=== PATIENT | female | born 1970 | race Two or more races ===

== ENCOUNTER 2022-04-06 13:44 | Inpatient (IN) | payer MEDICAID ==
[~2022-04-06] VITALS: Ht 157.5 cm; Wt 60.5 kg
[2022-04-06 15:53] LABS: Basophils # (auto) 0.1 10 ^3/uL (0-0.2); Basophils % (auto) 1.1 % (0.0-2.0); Eosinophils # (auto) 0.1 10 ^3/uL (0-0.8); Eosinophils % (auto) 1.3 % (0.0-7.0); Hematocrit 38.9 % (36.0-46.0); Hemoglobin 13.3 g/dL (12.2-16.2); Lymphocytes # (auto) 1.4 10 ^3/uL (0.4-5.4); Mean Corpuscular Hemoglobin 28.5 pg (28.0-32.0); Mean Corpuscular Hgb Conc. 34.3 g/dL (32.0-36.0); Monocytes # (auto) 0.4 10 ^3/uL (0-1.3); Neutrophils # (auto) 3.6 10 ^3/uL (1.6-8.6); Neutrophils % (auto) 64.6 % (37.0-80.0); Nucleated Red Blood Cells % 0.1 %; Red Blood Cells 4.68 10^6/uL (4.0-5.20); Red Cell Distribution Width 15.1 % (11.8-14.3); White Blood Cell 5.6 10^3/uL (4.4-10.8)
[2022-04-06 16:11] LABS: Albumin 4.1 g/dL (3.4-5.0); Calcium 8.8 mg/dL (8.5-10.1); Potassium 3.5 mmol/L (3.5-5.1)
[2022-04-06 16:14] LABS: Bilirubin, Total 0.5 mg/dL (0.2-1.0); Total Protein 7.8 g/dL (6.4-8.2)
[2022-04-06 16:30] LABS: Partial Thromboplastin Time 24.9 sec (23.6-33.0)
[2022-04-06] MEDS ORDERED: SUMAtriptan SUCCINATE 25 MG TAB PO PRN (21:15)
[2022-04-06] MEDS ORDERED: MORPHINE SULFATE INJ 2 MG/ml SYRG IV PRN (21:15)
[2022-04-06] MEDS ORDERED: ACETAMINOPHEN 325 MG TAB PO PRN (21:15)
[2022-04-06] MEDS ORDERED: TEMAZEPAM 15 MG CAP PO PRN (21:15)
[2022-04-06] MEDS ORDERED: DEXTROSE (50%) 50ML SYRG IV PRN (21:15)
[2022-04-06] MEDS ORDERED: NITROGLYCERIN 0.4 MG SL TAB SL PRN (21:15)
[2022-04-06] MEDS ORDERED: ONDANSETRON HCL 4 MG/2 ML VIAL IV PRN (21:15)
[2022-04-06] MEDS: ACCU-CHEK COMFORT CURVE STRIP VI SCH (22:02)
[2022-04-06] MEDS: InsuLIN REG 1unit/0.01ml Soln (100units/ml) SC SCH (22:02)
[2022-04-06] MEDS: HYDROcodone-ACET 5/325MG TAB PO PRN (22:07)
[2022-04-06 23:15] VITALS: BP 139/77
[2022-04-06] MEDS ORDERED: METF-370 PO (23:56)
[2022-04-07 05:00] VITALS: BP 140/78
[2022-04-07] MEDS ORDERED: FER325T PO (06:13)
[2022-04-07] MEDS ORDERED: SERT50TA19 PO (06:13)
[2022-04-07] MEDS ORDERED: ERTU5TAB PO (06:13)
[2022-04-07] MEDS ORDERED: LISI-275 PO (06:13)
[2022-04-07] MEDS ORDERED: OMEP20TA PO (06:13)
[2022-04-07] MEDS: InsuLIN REG 1unit/0.01ml Soln (100units/ml) SC SCH ×4 (06:17→21:31)
[2022-04-07] MEDS: ACCU-CHEK COMFORT CURVE STRIP VI SCH ×4 (06:17→21:29)
[2022-04-07 07:03] LABS: Basophils # (auto) 0 10 ^3/uL (0-0.2); Basophils % (auto) 0.5 % (0.0-2.0); Eosinophils # (auto) 0.1 10 ^3/uL (0-0.8); Eosinophils % (auto) 1.5 % (0.0-7.0); Hematocrit 38.8 % (36.0-46.0); Hemoglobin 12.9 g/dL (12.2-16.2); Lymphocytes # (auto) 1.3 10 ^3/uL (0.4-5.4); Lymphocytes % (auto) 32.4 % (10.0-50.0); Mean Corpuscular Hemoglobin 27.7 pg (28.0-32.0); Mean Corpuscular Hgb Conc. 33.3 g/dL (32.0-36.0); Mean Corpuscular Volume 83.3 fL (80.0-100.0); Monocytes # (auto) 0.4 10 ^3/uL (0-1.3); Monocytes % (auto) 10.1 % (0.0-12.0); Neutrophils # (auto) 2.3 10 ^3/uL (1.6-8.6); Neutrophils % (auto) 55.5 % (37.0-80.0); Nucleated Red Blood Cells % 0.3 %; Red Blood Cells 4.66 10^6/uL (4.0-5.20); Red Cell Distribution Width 14.6 % (11.8-14.3)
[2022-04-07 07:29] LABS: BUN/Creatinine Ratio 29.6; Calcium 8.9 mg/dL (8.5-10.1); Potassium 4.1 mmol/L (3.5-5.1)
[2022-04-07 07:59] LABS: White Blood Cell 4.1 10^3/uL (4.4-10.8)
[2022-04-07] MEDS: HYDROcodone-ACET 5/325MG TAB PO PRN (08:33)
[2022-04-07 09:00] VITALS: BP 134/78
[2022-04-07] MEDS: ENOXAPARIN SOD 40 MG/0.4 ML SYRINGE SC SCH (09:35)
[2022-04-07] MEDS: LISINOPRIL 5 MG TAB PO SCH (09:35)
[2022-04-07 13:18] VITALS: BP 114/71
[2022-04-07 17:00] VITALS: BP 116/67
[2022-04-07 22:00] VITALS: BP 122/74
[2022-04-08 05:00] VITALS: BP 118/75
[2022-04-08] MEDS: ACCU-CHEK COMFORT CURVE STRIP VI SCH ×4 (06:12→20:59)
[2022-04-08] MEDS: InsuLIN REG 1unit/0.01ml Soln (100units/ml) SC SCH ×4 (06:12→21:05)
[2022-04-08 09:00] VITALS: BP 112/70
[2022-04-08] MEDS: ENOXAPARIN SOD 40 MG/0.4 ML SYRINGE SC SCH (09:26)
[2022-04-08] MEDS: HYDROcodone-ACET 5/325MG TAB PO PRN (09:27)
[2022-04-08] MEDS: LISINOPRIL 5 MG TAB PO SCH (09:27)
[2022-04-08 13:00] VITALS: BP 107/58
[2022-04-08 17:00] VITALS: BP 107/62
[2022-04-08 22:00] VITALS: BP 113/60
[2022-04-09 05:00] VITALS: BP 118/78
[2022-04-09] MEDS: ACCU-CHEK COMFORT CURVE STRIP VI SCH ×3 (06:29→17:11)
[2022-04-09] MEDS: InsuLIN REG 1unit/0.01ml Soln (100units/ml) SC SCH ×3 (06:30→17:16)
[2022-04-09 09:00] VITALS: BP 111/69
[2022-04-09] MEDS: ENOXAPARIN SOD 40 MG/0.4 ML SYRINGE SC SCH (09:38)
[2022-04-09] MEDS: LISINOPRIL 5 MG TAB PO SCH (09:39)
[2022-04-09] MEDS ORDERED: SERT50TA19 PO (12:27)
[2022-04-09 13:00] VITALS: BP 114/72
[2022-04-09 17:00] VITALS: BP 107/68
[2022-04-09 17:49] VITALS: BP 107/68
== END 2022-04-09 19:00 | disposition home health service (06) | DRG 54 ==
LOC: ER 13:44 → OVERFLOW 21:09 → CENTRAL 23:00
PROVIDERS: ADMIT Nurse Practitioner; ATTEND Internal Medicine
DX: R51.9 Headache, unspecified (principal); E11.9 Type 2 diabetes mellitus without complications; Z20.822 Contact with and (suspected) exposure to COVID-19; F41.9 Anxiety disorder, unspecified; I10 Essential (primary) hypertension; Z86.73 Personal history of transient ischemic attack (TIA), and cerebral infarction without residual deficits; Z79.899 Other long term (current) drug therapy; Z83.3 Family history of diabetes mellitus; Z82.49 Family history of ischemic heart disease and other diseases of the circulatory system; Z80.3 Family history of malignant neoplasm of breast
CPT/HCPCS: 36415; 70450; 70551; 71045; 80048; 80053; 82962; 83880; 84484; 84702; 85025; 85610; 85730; 93005; 93306; 95819; G0378; J1815